=== PATIENT | female | born 1965 | race Caucasian/White ===

== ENCOUNTER 2023-03-28 13:59 | Emergency (ER) | payer MEDICARE ==
[~2023-03-28] VITALS: Ht 165.1 cm; Wt 74.8 kg
[2023-03-28] MEDS ORDERED: CEPHALEXIN500 M1 PO (14:51)
[2023-03-28] MEDS ORDERED: MELOXICAM15 MG PO (14:51)
== END 2023-03-28 15:02 | disposition home or self-care (01) ==
LOC: ED 13:59
DX: S01.83XA Puncture wound without foreign body of other part of head, initial encounter (principal); W11.XXXA Fall on and from ladder, initial encounter; Y93.89 Activity, other specified; Y92.89 Other specified places as the place of occurrence of the external cause; Y99.8 Other external cause status